=== PATIENT | male | born 1985 | race African-American/Black ===

== ENCOUNTER 2020-08-24 21:50 | Emergency (ER) | payer OTHER, SELFPAY ==
[2020-08-24 22:10] VITALS: BP 143/96; PULSE 82; RESP 18; TEMP 37.6; O2SAT 99; BMI 23.6
--- NOTE | 2020-08-24 22:11 | ED.URI ---
HPI - URI/Sore Throat General Chief Complaint: Fever Stated Complaint: covid symptoms Time Seen by Provider: 08/24/20 22:02 Source: patient Mode of arrival: ambulatory Limitations: no limitations History of Present Illness HPI Narrative: 34 yo male healthy comes in with c/o body aches, headache, runny nose started tonight, here for COVID test MD elicited complaint: rhinorrhea Onset (ago): day(s) (just in the last few hours) Consistency: constant Severity: mild Able to tolerate fluids by mouth: Yes Exacerbating factors: nothing Relieving factors: nothing Associated symptoms: myalgias, headache and rhinorrhea Treatments prior to arrival: none Related Data Allergies Allergy/AdvReac Type Severity Reaction Status Date / Time No Known Allergies Allergy Verified 08/24/20 22:15 Review of Systems Review of Systems: Constitutional : no Fever, positive Chills, no fatigue, positive Malaise ENT/Mouth : no sore throat, positive runny nose Eyes: No Discharge Cardiovascular : No Chest Pain, No SOB Respiratory : No Cough, No Sputum Gastrointestinal : No Nausea, No Vomiting, No Diarrhea Genitourinary : No Dysuria, No Urinary Frequency Musculoskeletal : positive Myalgia Skin : No rash Neuro : pos Headache PMFSH Past Medical History Medical History (Updated 08/24/20 @ 22:15 by Socorro Longoria DO) G6PD deficiency Social History Social History (Updated 08/24/20 @ 22:15 by Socorro Longoria DO) Alcohol intake: never Smoking Status: Never smoker Use of substances other than those prescribed or required for medical reasons: No Advance Directives: No Advance Directives Information Provided: Yes Physical Exam Vital Signs: Vital Signs: Last Vital Signs Temp 99.7 F 08/24/20 22:10 Pulse 82 08/24/20 22:10 Resp 18 08/24/20 22:10 BP 143/96 H 08/24/20 22:10 Pulse Ox 99 08/24/20 22:10 Body Mass Index 23.6 Appearance: Alert. Oriented X3. No acute distress. Eyes: Pupils equal, round and reactive to light. ENT: Pharynx normal. Neck: Normal inspection. Neck supple. CVS: Normal heart rate and rhythm. Pulses normal. Respiratory: No respiratory distress. Breath sounds normal. Abdomen: Soft and nontender. Skin: Skin warm and dry. Normal skin color. Normal skin turgor. Extremities: No lower extremity edema. No calf ttp Neuro: Oriented X 3. No motor deficit. No sensory deficit. Course Course Course Narrative: patient called with neg results MDM - URI/Sore Throat MDM Narrative Medical decision making narrative: 34 yo male here with body aches, runny nose, stable VS not toxic, COVID swab and DC Home with precautions will call with result. Lab Data Labs: Lab Results 08/24/20 Range/Units 22:12 Coronavirus (PCR) NEGATIVE (Negative) Influenza Type A (PCR) NEGATIVE (Negative) Influenza Type B (PCR) NEGATIVE (Negative) RSV RNA Qual (PCR) NEGATIVE (Negative) Discharge Plan Discharge Clinical Impression: Acute viral syndrome Patient Disposition: Home, Self-Care Instructions: Viral Syndrome (ED), COVID-19 (Coronavirus Disease 2019) (ED) Additional Instructions: return to ED for any worsening symptoms or concerns you were tested for COVID we will call you with results, if this continues please get repeat test in 3 days Stand Alone Forms: Work/School Release Interventions: ED Discharge Assessment Last Done: 08/24/20 22:22 Discharge Date/Time: 08/24/20 22:23
[2020-08-24 23:00] LABS: Influenza A PCR NEGATIVE (Negative); Influenza B PCR NEGATIVE (Negative); Resp Syncy Virus RNA Qual PCR NEGATIVE (Negative); SARS COV2 PCR INHOUSE NEGATIVE (Negative)
== END 2020-08-24 22:23 | disposition home or self-care (01) ==
LOC: HO.ED 22:15
PROVIDERS: Emergency Provider Emergency Medicine
DX: B34.9 Viral infection, unspecified (principal); R50.9 Fever, unspecified; J34.89 Other specified disorders of nose and nasal sinuses; Z20.822 Contact with and (suspected) exposure to COVID-19
CPT/HCPCS: 0241U; 36415; 99283